=== PATIENT | female | born 1950 | race African-American/Black ===

== ENCOUNTER 2023-09-18 10:37 | Emergency (ER) | payer OTHER ==
[~2023-09-18] VITALS: Ht 170.2 cm; Wt 82.0 kg
[2023-09-18 11:30] LABS: BASOPHILS % 0.6 % (0.0-2.0); EOSINOPHILS % 0.8 % (0.0-5.0); HEMATOCRIT. 41.1 % (36.0-48.0); HEMOGLOBIN. 13.3 g/dL (12.0-16.0); MEAN CORPUSCULAR HEMOGLOBIN 30.9 pg (28.0-32.0); MEAN CORPUSCULAR HGB CONC 32.3 g/dL (31.0-37.0); MEAN CORPUSCULAR VOLUME 95.9 fL (81.0-99.0); MONOCYTES % 9.5 % (2.0-8.0); NEUTROPHILS % 76.1 % (40.0-76.0); PLATELET 221 x1000/uL (130-400); RED BLOOD CELL COUNT 4.29 mill/uL (4.2-5.4); RED CELL DISTRIBUTION WIDTH 16.7 % (11.6-14.6); WHITE BLOOD COUNT 8.1 x1000/uL (4.5-11.0)
[2023-09-18 11:44] LABS: D-DIMER 1.93 mg/L FEU (<0.50); INR 1.1; PROTHROMBIN TIME 12.1 sec (9.6-11.0)
[2023-09-18 11:46] LABS: ALANINE AMINOTRANSFERASE 15 IU/L (10-49); ALBUMIN 3.6 g/dL (3.2-4.8); ASPARTATE AMINOTRANSFERASE 19 IU/L (<34); BILIRUBIN TOTAL 0.6 mg/dL (0.1-1.0); CALCIUM 9.4 mg/dL (8.7-10.4); CARBON DIOXIDE 26 mEq/L (21-32); CHLORIDE 110 mEq/L (98-107); CREATININE 0.9 mg/dL (0.6-1.0); GLUCOSE 119 mg/dL (70-105); PROTEIN TOTAL 7.4 g/dL (6.0-8.3); SODIUM 143 mEq/L (136-145); UREA NITROGEN BLOOD 13 mg/dL (9-23)
[2023-09-18 11:51] LABS: TROPONIN I HIGH SENSITIVITY 134 ng/L (3.0-34)
[2023-09-18] MEDS: IPRATROPIUM BROMIDE (0.02%) 0.5MG/2.5ML NEB HHN STA (12:19)
[2023-09-18] MEDS: ALBUTEROL (0.083%) 2.5MG/3ML NEB HHN STA (12:19)
[2023-09-18 12:24] VITALS: PULSE 116; RESP 28; O2SAT 99
[2023-09-18] MEDS: VANCOMYCIN 1G PREMIX 200 ML IV ONE (12:38)
[2023-09-18] MEDS: PIPERACILLIN/TAZO 3.375G/50ML 50 ML IV ONE (12:38)
[2023-09-18 13:43] LABS: TROPONIN I HIGH SENSITIVITY 152 ng/L (3.0-34)
[2023-09-18 15:33] VITALS: BP 165/98; PULSE 124; RESP 36; TEMP 98.8
== END 2023-09-18 15:55 | disposition short-term general hospital (02) ==
LOC: ER 10:37 → CANBEDREQ 13:19 → ER 15:55
DX: C34.90 Malignant neoplasm of unspecified part of unspecified bronchus or lung (principal); A41.9 Sepsis, unspecified organism; R06.00 Dyspnea, unspecified; J44.9 Chronic obstructive pulmonary disease, unspecified; I10 Essential (primary) hypertension
CPT/HCPCS: 99291; 96365; 71260; 71045; 87426; 80053; 83880; 83605; 85025; 85379; 85610; 87040; 84484; 36415; 93005; 94644; 96368; J2543; J3370